=== PATIENT | male | born 1940 | race Caucasian/White ===

== ENCOUNTER 2017-09-03 11:50 | Inpatient (IN) | payer OTHER ==
[~2017-09-03] VITALS: Ht 172.7 cm; Wt 75.3 kg
[2017-09-03] MEDS ORDERED: CARV3.1242 PO (11:57)
[2017-09-03] MEDS ORDERED: NITROGLYCERIN OINT 1GM/INCH UDPKT TD ONE (13:45)
[2017-09-03 14:17] LABS: BASOPHILS % 1.1 % (0.0-2.0); HEMATOCRIT. 42.6 % (42.0-52.0); HEMOGLOBIN. 14.4 g/dL (14.0-18.0); MEAN CORPUSCULAR HEMOGLOBIN 31.3 pg (28.0-32.0); MEAN CORPUSCULAR VOLUME 92.5 fL (80.0-94.0); MONOCYTES % 8.3 % (2.0-8.0); NEUTROPHILS % 73.6 % (40.0-76.0); PLATELET 195 x1000/uL (130-400); RED CELL DISTRIBUTION WIDTH 14.5 % (11.6-14.6)
[2017-09-03 14:29] LABS: INR 1.1; PARTIAL THROMBOPLASTIN TIME 42.2 sec (23.4-31.0); PROTHROMBIN TIME 11.1 sec (9.4-11.6)
[2017-09-03 14:33] LABS: CARBON DIOXIDE 29 mEq/L (21-32); CHLORIDE 107 mEq/L (98-107); TROPONIN I < 0.02 ng/mL (0.00-0.04)
[2017-09-03] MEDS ORDERED: NITR0.4T49 SL (17:03)
[2017-09-03 17:45] VITALS: BP 158/87
[2017-09-03] MEDS ORDERED: TAMS0.4C31 PO (19:36)
[2017-09-03] MEDS ORDERED: OMEP20TA2 PO (19:36)
[2017-09-03] MEDS ORDERED: ISOS30TA6 PO (19:36)
[2017-09-03] MEDS ORDERED: ROSU10TA PO (19:36)
[2017-09-03] MEDS ORDERED: IBUP-2030 PO (19:36)
[2017-09-03 20:00] VITALS: BP 139/81
[2017-09-03] MEDS ORDERED: ENOXAPARIN 40MG/0.4ML SYR SUBCUT SCH (20:00)
[2017-09-03] MEDS ORDERED: ONDANSETRON HCL 4MG/2ML VIAL IV PRN (20:15)
[2017-09-03] MEDS ORDERED: CLONIDINE 0.1MG TABLET PO PRN (20:15)
[2017-09-03] MEDS ORDERED: MAGNESIUM/ALUMINUM HYDROXIDE/SIMETHICONE 30ML UDC PO PRN (20:15)
[2017-09-03] MEDS ORDERED: DOCUSATE SODIUM 100MG CAPSULE PO PRN (20:15)
[2017-09-03] MEDS ORDERED: ATORVASTATIN CALCIUM 20MG TABLET PO SCH (21:00)
[2017-09-03] MEDS: FAMOTIDINE 20MG TABLET PO SCH (21:11)
[2017-09-03] MEDS: CARVEDILOL 3.125 MG TABLET PO SCH (21:12)
[2017-09-03 23:15] LABS: CLARITY URINE CLEAR (CLEAR); COLOR URINE YELLOW (YELLOW); GLUCOSE URINE NEGATIVE (NEGATIVE); KETONES URINE TRACE (NEGATIVE); LEUKOCYTE ESTERASE URINE NEGATIVE (NEGATIVE); NITRITE URINE NEGATIVE (NEGATIVE); OCCULT BLOOD URINE NEGATIVE (NEGATIVE); PH URINE 6.5 (4.5-8.0); PROTEIN URINE NEGATIVE (NEGATIVE); SPECIFIC GRAVITY URINE 1.023 (1.005-1.030); UROBILINOGEN URINE 0.2 E.U./dL (0.2-1.0)
[2017-09-04] VITALS: BP 125/75
[2017-09-04 00:32] LABS: CREATINE KINASE 54 IU/L (39-308); CREATINE KINASE MB FRACTION < 0.5 ng/mL (0.5-3.6); TROPONIN I 0.04 ng/mL (0.00-0.04)
[2017-09-04 04:00] VITALS: BP 132/71
[2017-09-04 07:29] LABS: BASOPHILS % 0.9 % (0.0-2.0); EOSINOPHILS % 3.6 % (0.0-5.0); HEMATOCRIT. 41.9 % (42.0-52.0); HEMOGLOBIN. 14.1 g/dL (14.0-18.0); LYMPHOCYTES % 17.7 % (20.0-50.0); MEAN CORPUSCULAR HEMOGLOBIN 31.3 pg (28.0-32.0); MEAN PLATELET VOLUME 8.5 fl (7.4-10.4); MONOCYTES % 11.3 % (2.0-8.0); NEUTROPHILS % 66.5 % (40.0-76.0); PLATELET 184 x1000/uL (130-400); RED BLOOD CELL COUNT 4.51 mill/uL (4.7-6.1)
[2017-09-04] MEDS ORDERED: REGADENOSON 0.4 MG/5 ML IV NR (07:45)
[2017-09-04 08:00] VITALS: BP 163/80
[2017-09-04 08:05] LABS: CARBON DIOXIDE 28 mEq/L (21-32); CHLORIDE 107 mEq/L (98-107); CREATINE KINASE MB FRACTION 0.6 ng/mL (0.5-3.6); T4 FREE 0.89 ng/dL (0.76-1.46); TROPONIN I 0.03 ng/mL (0.00-0.04)
[2017-09-04 08:08] LABS: CREATINE KINASE 53 IU/L (39-308); HDL CHOLESTEROL 54 mg/dL (40-59); LDL CHOLESTEROL 82 mg/dL (5-100)
[2017-09-04] MEDS ORDERED: IOHEXOL-350 100 ML BOTTLE ONE (08:58)
[2017-09-04] MEDS ORDERED: ASPIRIN 81MG TABLET PO SCH (09:00)
[2017-09-04] MEDS ORDERED: ASPIRIN 81MG EC TABLET PO SCH (09:00)
[2017-09-04] MEDS ORDERED: ISOSORBIDE MONONITRATE 30MG TABLET SR 24HR PO SCH (09:00)
[2017-09-04] MEDS ORDERED: REGADENOSON 0.4 MG/5 ML IV ONE (09:14)
[2017-09-04] MEDS ORDERED: SODIUM CHLORIDE 0.9% 10ML VIAL ONE (09:20)
[2017-09-04] MEDS: CLOPIDOGREL 75MG TABLET PO SCH ×2 (10:29→10:33)
[2017-09-04] MEDS: FAMOTIDINE 20MG TABLET PO SCH (10:30)
[2017-09-04] MEDS: CARVEDILOL 3.125 MG TABLET PO SCH (10:31)
[2017-09-04 12:00] VITALS: BP 110/62
[2017-09-04 16:00] VITALS: BP 133/76
[2017-09-04 17:48] VITALS: BP 133/76
== END 2017-09-04 18:05 | disposition home or self-care (01) | DRG 311 ==
LOC: ER 11:50 → 7WST 15:06 → EDBEDREQ 15:09 → ENRESERV 15:21 → CANRESERV 15:21 → ENRESERV 15:26
PROVIDERS: ADMIT Internal Medicine; ATTEND Internal Medicine
PROC: 4A02XM4 Measurement of Cardiac Total Activity, External Approach (ICD-10-PCS; principal; 2017-09-04)
DX: I24.9 Acute ischemic heart disease, unspecified (principal); I42.9 Cardiomyopathy, unspecified; E78.00 Pure hypercholesterolemia, unspecified; E78.5 Hyperlipidemia, unspecified; Z88.2 Allergy status to sulfonamides; Z79.899 Other long term (current) drug therapy
CPT/HCPCS: 36415; 71010; 71275; 78452; 80053; 80061; 81003; 82550; 82553; 83036; 83690; 83880; 84439; 84443; 84484; 85025; 85379; 85610; 85730; 93005; 93017; 93306; 99285; A4216; A9500; J1650; J2785; Q9967